=== PATIENT | male | born 1975 | race Caucasian/White ===

== ENCOUNTER 2017-08-24 16:57 | Emergency (ER) | payer SELFPAY ==
[~2017-08-24] VITALS: Ht 170.2 cm; Wt 86.4 kg
[2017-08-24 17:00] VITALS: BP 135/81
[2017-08-24] MEDS ORDERED: KETOROLAC TROMETHAMINE 60 MG/2 ML VIAL IM ONE (17:45)
== END 2017-08-24 19:22 | disposition home or self-care (01) ==
LOC: EMS 16:59
DX: S60.221A Contusion of right hand, initial encounter (principal); F12.90 Cannabis use, unspecified, uncomplicated; Y04.0XXA Assault by unarmed brawl or fight, initial encounter; Y93.89 Activity, other specified; Y92.89 Other specified places as the place of occurrence of the external cause; Y99.8 Other external cause status
CPT/HCPCS: 73130; 96372; 99284; J1885